=== PATIENT | male | born 2000 | race Caucasian/White ===

== ENCOUNTER 2020-08-31 15:37 | Emergency (ER) | payer OTHER, SELFPAY ==
[2020-08-31 15:48] VITALS: BP 111/63; PULSE 69; RESP 20; TEMP 37.2; O2SAT 100
--- NOTE | 2020-08-31 16:04 | ED.SKABFB ---
HPI - Skin/Abscess/Foreign Bdy General Chief complaint: Skin/Abscess/Foreign Body Stated complaint: Wasp sting Source: patient and RN notes reviewed Mode of arrival: ambulatory Limitations: no limitations Related Data Allergies Allergy/AdvReac Type Severity Reaction Status Date / Time No Known Allergies Allergy Verified 01/11/20 08:40 Review of Systems Review of Systems: Narrative: A 14 organ system Review of Systems was performed and pertinent positives included in the HPI, otherwise remaining ROS is negative. [facility] Family History Family History Grandparent Family history of lung cancer Diabetes mellitus Social History Social History Smoking status: Never smoker Alcohol intake: never Exam Narrative: Exam Narrative: GENERAL: This is a well-nourished, well-developed patient, in no apparent distress. HEAD: normocephalic, atraumatic. EYES: PERRL. Sclera clear/white. Vision is grossly intact. EARS: External ears normal, auditory canals clear and without drainage, TMs normal without perforation. Hearing grossly intact. NOSE: External nose normal with no obvious nasal discharge, nares without redness, no rhinorrhea. THROAT: Mucous membranes moist, posterior pharynx clear. NECK: Neck supple, non-tender without lymphadenopathy, masses or thyromegaly. CARDIOVASCULAR: Regular rate and rhythm without murmurs, gallops, or rubs. RESPIRATORY: Clear to auscultation. Breath sounds equal bilaterally. No wheezes, rales, or rhonchi. GASTROINTESTINAL: Abdomen soft, non-tender, nondistended. Bowel sounds are active. No hepato-splenomegaly, or palpable masses. No guarding. SKIN: warm, intact with no suspicious lesions or rash, good texture and turgor. NEURO: awake, alert, and oriented to person, place and time. There were no obvious focal neurologic abnormalities. Steady gait EXTREMITIES: Normal range of motion. Left lateral juan small pinpoint open wound with edema erythema surrounding wound. Lower extremity warm to touch. Sensation is positive no calf tenderness. Negative Homans sign bilaterally. BACK: Nontender without deformity or crepitance. No flank tenderness. Course Course Emergency Course: Patient will discharge home with doxycycline 100 mg twice daily for 7 days. Instructed to clean wound with soap and water apply Neosporin and cover with bandage Vital Signs Vital signs: Vital Signs Temperature 99.0 F 08/31/20 15:48 Pulse Rate 69 08/31/20 15:48 Respiratory Rate 20 08/31/20 15:48 Blood Pressure 111/63 08/31/20 15:48 Pulse Oximetry 100 08/31/20 15:48 Temperature 99.0 F 08/31/20 15:48 Pulse Rate 69 08/31/20 15:48 Respiratory Rate 20 08/31/20 15:48 Blood Pressure 111/63 08/31/20 15:48 Pulse Oximetry 100 08/31/20 15:48 MDM - Skin/Abscess/Foreign Bdy Differential Diagnosis Differential diagnosis: Likely abscess of skin or subcutaneous tissue, cellulitis and contact dermatitis Discharge Plan Discharge Clinical Impression: Cellulitis Qualifiers: Site of cellulitis: extremity Site of cellulitis of extremity: lower extremity Laterality: left Qualified Code(s): L03.116 - Cellulitis of left lower limb Patient Disposition: Home, Self-Care Condition: Stable Instructions: Antibiotic Form, Cellulitis (ED) Additional Instructions: Take medications as prescribed. Follow up with Provider within 1-2 weeks. When do I need to call the doctor? Signs of infection. These include a fever of 100.4?F (38?C) or higher, chills, or wound that will not heal. Signs of wound infection. These include swelling, redness, warmth around the wound; too much pain when touched; yellowish, greenish, or bloody discharge; foul smell coming from the cut or wound site; wound site opens up; blisters form at the site. When cellulitis is on the face, any signs of spreading to the sinus or eye must be e
== END 2020-08-31 16:05 | disposition home or self-care (01) ==
PROVIDERS: Emergency Provider Nurse Practitioner; PCP Family Medicine
DX: L03.116 Cellulitis of left lower limb (principal)
CPT/HCPCS: 99213; G0463

== ENCOUNTER 2023-07-28 12:59 | Emergency (ER) | payer OTHER, SELFPAY ==
--- NOTE | ~2023-07-28 | XR_ITS ---
XR hand RT min 3V 07/28/2023 13:17 INDICATION: Right hand pain. PROCEDURE: 3 views right hand COMPARISON: No prior studies for comparison. FINDINGS: Fracture, dislocation or subluxation is not identified. The soft tissues appear within norm al limits. No foreign bodies are identified. IMPRESSION: 1: NO ACUTE BONE OR JOINT ABNORMALITY IDENTIFIED. Reviewed, dictated and finalized at location A.
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
[2023-07-28 13:10] VITALS: BP 128/74; PULSE 95; RESP 16; TEMP 36.8; O2SAT 100
== END 2023-07-28 13:28 | disposition home or self-care (01) ==
PROVIDERS: Emergency Provider Nurse Practitioner Family; PCP Family Medicine
DX: S63.91XA Sprain of unspecified part of right wrist and hand, initial encounter (principal); W22.8XXA Striking against or struck by other objects, initial encounter; S60.221A Contusion of right hand, initial encounter
CPT/HCPCS: 73130; 99213; G0463

== ENCOUNTER 2023-08-27 10:22 | Outpatient (CLI) | payer OTHER, SELFPAY ==
--- NOTE | ~2023-08-27 | XR_ITS ---
Right Hand Technique: PA, oblique, and lateral views were obtained. Clinical History: Pain Findings: No acute fracture or dislocation is seen. Osseous alignment is anatomic. Joint spaces are p reserved. Soft tissues are unremarkable. Impression: Unremarkable right hand. Reviewed, dictated and finalized at location M. Impression: Unremarkable right hand.
== END 2023-08-27 10:23 | disposition home or self-care (01) ==
PROVIDERS: PCP Family Medicine; Visit Provider Plastic Surgery
DX: M79.641 Pain in right hand (principal)
CPT/HCPCS: 73130

== ENCOUNTER 2023-12-10 15:27 | Outpatient (CLI) | payer OTHER, SELFPAY ==
--- NOTE | ~2023-12-10 | XR_ITS ---
EXAMINATION: XR lumbar spine 2-3V DATE: 12/10/2023 15:57 INDICATION: Segmental and somatic dysfunction of the lumbar spine. TECHNIQUE: 3 views of lumbar spine were obtained. COMPARISON: None. FINDINGS: Bone alignment is normal. Vertebral body heights and intervertebral disc heights are normal . The facet joints are unremarkable. IMPRESSION: 1. Normal lumbar spine. Reviewed, dictated and finalized at location A. IMPRESSION: 1. Normal lumbar spine.
--- NOTE | ~2023-12-10 | XR_ITS ---
EXAMINATION: XR_CERV2-3V_CR DATE: 12/10/2023 15:57 INDICATION: Segmental and somatic dysfunction of the cervical spine. TECHNIQUE: 3 views of the cervical spine were obtained. COMPARISON: None. FINDINGS: There is 5 degrees dextrocurvature of cervical spine. There is hypolordosis of cervical spi ne. Vertebral body heights and intervertebral disc heights are normal. The facet joints are unremarka ble. No central canal stenosis or prevertebral soft tissue swelling. IMPRESSION: 1. Cervical dextrocurvature and hypolordosis. Reviewed, dictated and finalized at location A.
== END 2023-12-10 15:28 | disposition home or self-care (01) ==
PROVIDERS: PCP Family Medicine
DX: M99.01 Segmental and somatic dysfunction of cervical region (principal); M99.03 Segmental and somatic dysfunction of lumbar region
CPT/HCPCS: 72040; 72100